=== PATIENT | female | born 2000 | race Caucasian/White ===

== ENCOUNTER 2024-07-16 15:37 | Emergency (ER) | payer OTHER ==
--- NOTE | 2024-07-16 16:42 | ED ---
Upper Extremity HPI - General Source: patient Mode of arrival: ambulatory Limitations: no limitations <Real Srinivasan - Last Filed: 07/16/24 16:42> - General Source: patient, RN notes reviewed <Winnie Lazar - Last Filed: 07/16/24 18:25> - General Chief Complaint: Extremity Injury, Upper Stated Complaint: R hand injury Time Seen by Provider: 07/16/24 16:42 - History of Present Illness Initial Comments: 24-year-old female presenting with chief complaint of right hand pain. Patient was frustrated and punched a wall. She is mainly having pain over the 3rd and 4th knuckles. She also has some bruising and swelling. (Real Srinivasan) 24-year-old female presenting for right hand injury 2 hours ago. States she was frustrated and punched a wall. She is having pain over the 3rd and 4th knuckles. Sent from [facility]. (Winnie Lazar) - Related Data Allergies Allergy/AdvReac Type Severity Reaction Status Date / Time No Known Allergies Allergy Verified 07/16/24 16:13 Review of Systems ROS Other: All systems not noted in ROS Statement are negative. <Real Srinivasan - Last Filed: 07/16/24 16:42> ROS Other: All systems not noted in ROS Statement are negative. <Winnie Lazar - Last Filed: 07/16/24 18:25> ROS Statement: Those systems with pertinent positive or pertinent negative responses have been documented in the HPI. Past Medical History Past Medical History: GERD/Reflux History of Any Multi-Drug Resistant Organisms: None Reported Past Surgical History: No Surgical Hx Reported Past Psychological History: Anxiety, Depression Smoking Status: Current every day smoker Past Alcohol Use History: Abuse, Daily Past Drug Use History: None Reported <Real Srinivasan - Last Filed: 07/16/24 16:42> General Exam Limitations: no limitations <Real Srinivasan - Last Filed: 07/16/24 16:42> General appearance: alert, in no apparent distress Head exam: Present: atraumatic, normocephalic, normal inspection Eye exam: Present: normal appearance, PERRL, EOMI. Absent: scleral icterus, conjunctival injection, periorbital swelling Right Forearm Wrist exam: Present: normal inspection, full ROM. Absent: tenderness, swelling Hand Wrist exam: Present: full ROM. Absent: normal inspection (Mild bruising to right 3rd and 4th knuckles), tenderness, swelling, abrasion, deformity, erythema Vascular: Present: normal capillary refill, radial pulse. Absent: vascular compromise Neurological exam: Present: alert, oriented X3 Psychiatric exam: Present: normal affect, normal mood Skin exam: Present: warm, dry, intact, normal color. Absent: rash <Winnie Lazar - Last Filed: 07/16/24 18:25> - General Exam Comments Initial Comments: Visual Physical Exam Vital signs reviewed General: Well-appearing, nontoxic, no acute distress. Head: Normocephalic, atraumatic Eyes: PERRLA, EOMI ENT: Airway patent Chest: Nonlabored breathing Skin: No visual rash, normal skin tone Neuro: Alert and oriented 3 Musculoskeletal: No gross abnormalities (Real Srinivasan) Course Vital Signs 07/16/24 07/16/24 16:09 17:52 Temperature 98.2 F 98.7 F Pulse Rate 71 76 Respiratory 18 16 Rate Blood Pressure 128/85 133/84 O2 Sat by Pulse 98 97 Oximetry Medical Decision Making <Real Srinivasan - Last Filed: 07/16/24 16:42> <Winnie Lazar - Last Filed: 07/16/24 18:25> - Medical Decision Making I performed the quick note portion of this visit, electronically signed Real Srinivasan PA-C (Real Srinivasan) Was pt. sent in by a medical professional or institution ([facility], [employer], urgent care, hospital, or assisted...) When possible be specific @ -Sent from [facility] Did you speak to anyone other than the patient for history (EMS, parent, family, police, friend...)? What history was obtained from this source @ -No Did you review nursing and triage notes (agree or disagree)? Why? @ -I reviewed and agree with nursing and triage notes Were old charts reviewed (outside hosp., previous admission, EMS record, old EKG, old radiological studies, urgent care reports/EKG's, assisted records)? Report findings @ -No old charts were reviewed Differential Diagnosis (chest pain, altered mental status, abdominal pain women, abdominal pain men, vaginal bleeding, weakness, fever, dyspnea, syncope, headache, dizziness, GI bleed, back pain, seizure, CVA, palpatations, mental health, musculoskeletal)? @ -Differential Musculoskeletal Muscular strain, contusion, ligament sprain, fracture, arthritis, septic arthritis, bursitis, cellulitis, muscle spasm, nerve compression, DVT, arterial occlusion, herpes zoster, electrolyte abnormality, tumor.... This is not meant to be in all inclusive list EKG interpreted by me (3pts min.). @ -None X-rays interpreted by me (1pt min.). @ -X-ray right hand reveals no acute process CT interpreted by me (1pt min.). @ -None done U/S interpreted by me (1pt. min.). @ -None done What testing was considered but not performed or refused? (CT, X-rays, U/S, labs)? Why? @ -None What meds were considered but not given or refused? Why? @ -None Did you discuss the management of the patient with other professionals (professionals i.e. , PA, [employer], lab, RT, psych nurse, social work instructor, cpc, teacher, marketing officer, medical case manager)? Give summary @ -No Was smoking cessation discussed for >3mins.? @ -No Was critical care preformed (if so, how long)? @ -No Were there social determinants of health that impacted care today? How? (Homelessness, low income, unemployed, alcoholism, drug addiction, transportation, low edu. Level, literacy, decrease access to med. care, senior living, rehab)? @ -No Was there de-escalation of care discussed even if they declined (Discuss DNR or withdrawal of care, Hospice)? DNR status @ -No What co-morbidities impacted this encounter? (DM, HTN, Smoking, COPD, CAD, Cancer, CVA, ARF, Chemo, Hep., AIDS, mental health diagnosis, sleep apnea, morbid obesity)? @ -None Was patient admitted / discharged? Hospital course, mention meds given and route, prescriptions, significant lab abnormalities, going to OR and other pertinent info. @ -Discharge. 24-year-old female sent from [facility] for right hand injury. Patient became frustrated and punched a wall. Neurovascularly intact. X-ray right hand reveals no acute process. Discussed diagnosis of right hand sprain. Chuy wrap applied. Appropriate return precautions and supportive care discussed. Case was discussed with my ED attending Dr. Gerber. Undiagnosed new problem with uncertain prognosis? @ -No Drug Therapy requiring intensive monitoring for toxicity (Heparin, Nitro, Insulin, Cardizem)? @ -No Were any procedures done? @ -No Diagnosis/symptom? @ -Right hand sprain Acute, or Chronic, or Acute on Chronic? @ -Acute Uncomplicated (without systemic symptoms) or Complicated (systemic symptoms)? @ -Uncomplicated Side effects of treatment? @ -No Exacerbation, Progression, or Severe Exacerbation? @ -No Poses a threat to life or bodily function? How? (Chest pain, [place], [place], pneumonia, PE, COPD, DKA, ARF, appy, cholecystitis, CVA, Diverticulitis, Homicidal, Suicidal, threat to staff... and all critical care pts) @ -No (Winnie Lazar) Disposition <Real Srinivasan - Last Filed: 07/16/24 16:42> Is patient prescribed a controlled substance at d/c from ED?: No Time of Disposition: 18:20 <Winnie Lazar - Last Filed: 07/16/24 18:25> Clinical Impression: Sprain of right hand Disposition: HOME SELF-CARE Condition: Stable Instructions (If sedation given, give patient instructions): Hand Sprain (ED) Additional Instructions: Please return to the Emergency Department if symptoms worsen or any other concerns. Referrals: None,Stated [Primary Care Provider] - 1-2 days
--- NOTE | 2024-07-16 17:49 | XR ---
EXAMINATION TYPE: XR hand complete RT DATE OF EXAM: 07/16/2024 5:06 PM COMPARISON: None CLINICAL INDICATION: Female, 24 years old with history of punched a wall; PHH, pain TECHNIQUE: XR hand complete RT 3 views were obtained. FINDINGS: Normal alignment of the visualized joints. No acute osseous pathology is identified. No e vidence of soft tissue swelling. No significant degeneration IMPRESSION: No acute osseous pathology. [facility], , 07/16/2024 5:46 PM
[2024-07-16 17:58] VITALS: TEMP 98.7
[2024-07-16 18:43] VITALS: BP 144/85; PULSE 104; RESP 18
== END 2024-07-16 18:43 | disposition home or self-care (01) ==
LOC: EC 15:37
DX: S63.91XA Sprain of unspecified part of right wrist and hand, initial encounter (principal); F17.200 Nicotine dependence, unspecified, uncomplicated; W22.01XA Walked into wall, initial encounter
CPT/HCPCS: 99283